=== PATIENT | female | born 1960 | race Caucasian/White ===

== ENCOUNTER → 2018-09-25 | Outpatient (CLI) | payer BC ==
--- NOTE | 2018-09-26 07:35 | RADRPT ---
PROCEDURE: XR Hip. CLINICAL INDICATION: PAIN TECHNIQUE: AP view of the pelvis, AP and frog lateral views of the bilateral hip were performed. COMPARISON: None. FINDINGS: No acute fracture or dislocation. Minimal arthrosis with mild medial joint space and areas of tiny ma rginal osteophyte formation. No erosive changes. No soft tissue abnormality. 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 RPTAT:AAJJ Physician Ivelisse Date Time Electronically viewed and signed by Zeina Farris Physician on 09/26/2018 07:35 RF/
--- NOTE | 2018-09-26 14:43 | CONS ---
Assessment/Plan Assessment/Plan Hospital Course (Demo Recall) 58-year-old female with long standing right worse than left groin pain. Radiographs are normal for bilateral hips and AP pelvis. On examination she does have a slightly shorter right leg. However this deformity is not from the hip as the AP pelvis shows equal lengths at the hip level. On examination appears the femur distally could be the cause of the shortening. On examination and on radiographs and based on history it is unlikely that this pain is secondary to any intra-articular pathology of the hip. Differential can include tendinitis, bursitis, inguinal hernia, inguinal ligament tear AKA "sports hernia," as well as possible etiology from the lower back. Additional work-up including an MRI of the pelvis and/or the lumbar spine was offered to the patient. At this time she states that pain symptoms are very tolerable and she just wants to make sure it was not something wrong with her hips. I did also suggested physical therapy for core and pelvic strengthening. A prescription was provided and the patient will think about starting physical therapy. I also recommended a small shoe lift to see if this can resolve her symptoms. Follow-up PRN Consultation Date/Type/Reason Admit Date/Time Date of Consultation: Sep 26, 2018 Reason for Consultation Bilateral hip pain Date/Time of Note DATE: 09/26/18 TIME: 14:29 Hx of Present Illness This is a 58-year-old female who presents with a history of right greater than left hip pain. Patient states the pain is in the groin. The pain is primarily when she does not stretch. It is very intermittent on the left and more constant on the right. It is described as sharp. The pain is rated as a 1/10 with activity and for/10 at rest. Walking tolerance is not limited. No external support. The patient does not admit to a limp. Navigates stairs without use of the banister. No difficulty with shoes and socks. No history of childhood or adolescent hip disease. No risk factors for avascular necrosis. There are no symptoms to suggest referred pain from the back with radicular symptoms. The patient does have a leg length discrepancy since she was young. Denies any trauma to her lower extremities. Stretching resolves most of her pain. Duration: Many years Injury: No Walking tolerance: Not limited Limp: no Support: No Stairs: Uses normal Physical Therapy: No Injections: No NSAID's: No Prior surgery: No Back pain: No Knee pain: No Risk of AVN : No Patient denies fever, chills, shortness of breath, chest pain, nausea/vomiting, constipation, diarrhea, numbness, and tingling. Past Medical History Denies past medical history Past Surgical History ACDF 2018 Family History Significant Family History: no pertinent family hx Social History Alcohol Use: rarely Smoking Status: Never smoker Drug Use: none Exam/Review of Systems Exam Vitals Weight: 160 pound Height: 5 foot 3 inches Temperature: 90.4 Heart Rate: 85 Blood Pressure: 122/71 Respiratory Rate: 10 Exam General: Awake, alert, in no acute distress, pleasant and cooperative Heart: regular rhythm Lungs: breathing comfortably, no tachypnea or dyspnea Musculoskeletal: Bilateral hips and lower extremity: Well developed female in no apparent distress. Gait demonstrates a nonantalgic gait. There is a short leg component on the right. Standing, the pelvis is slightly oblique and supine there is a true leg length discrepancy, with the right leg 0.5 cm short. There is a positive Galeazzi sign with the right femur slightly shorter than the left. Also possible that the right tibia is subtly shorter than the left as well. No significant tenderness over trochanteric bursa or IT band. There is tenderness to palpation over the right groin ilioinguinal ligament. ----- Range of motion: Flexion: 130 Extension: 0 Internal rotation: 30 External rotation: 60 Abduction: 60 Adduction: 10 ----- Sitting there is no pelvic obliquity. Pain at the extremes of motion of the affected hip. Skin was intact throughout both lower extremities. Sensation intact to light touch in a sural, saphenous, deep peroneal, superficial peroneal, medial and lateral plantar nerve distribution. Neurovascular exam showed 5/5 strength in the abductors, quads, EHL/tibialis anterior/gastroc. Normal and symmetrical pulses were palpated in both the dorsalis pedis and posterior tibial arteries. There is no sign of venous stasis. Imaging Imaging The patient received a full set of films and personally reviewed by myself today in clinic including an AP pelvis and an AP and lateral of the affected hip. The hips are reduced there are no signs of subluxation. There is an extremely subtle amount of undercoverage on the right hip. In terms of any leg length discrepancy the hips are of equal length on the AP pelvis x-ray. There are no degenerative changes. There is no significant deformity of the the proximal femur, femoral neck, or acetabulum. The pelvis is in continuity. Bone quality radiographically: RIGOBERTO Russo MD Sep 26, 2018 14:43
== END | disposition home or self-care (01) ==
LOC: HKI 13:38
PROVIDERS: ATTEND Orthopaedic Surgery Adult Reconstructive Orthopaedic Surgery
DX: M21.70 Unequal limb length (acquired), unspecified site (principal); R10.30 Lower abdominal pain, unspecified; S52.371A Galeazzi's fracture of right radius, initial encounter for closed fracture; X58.XXXA Exposure to other specified factors, initial encounter; Y92.89 Other specified places as the place of occurrence of the external cause
CPT/HCPCS: 73523; G0463